=== PATIENT | male | born 1985 | race Caucasian/White ===

== ENCOUNTER 2016-07-18 17:44 | Emergency (ER) | payer MEDICARE | END 2016-07-18 18:11 | disposition home or self-care (01) | LOC: D.ER 17:44 | DX: Z03.89 Encounter for observation for other suspected diseases and conditions ruled out (principal) ==

== ENCOUNTER 2016-07-26 15:03 | Emergency (ER) | payer MEDICARE ==
[2016-07-26 16:22] LABS: UDS - AMPHET NEGATIVE QUAL (NEGATIVE); UDS - BARB NEGATIVE QUAL (NEGATIVE); UDS - BENZO NEGATIVE QUAL (NEGATIVE); UDS - COCAINE NEGATIVE QUAL (NEGATIVE); UDS - METH NEGATIVE QUAL (NEGATIVE); UDS - OPIATE NEGATIVE QUAL (NEGATIVE); UDS - PCP NEGATIVE QUAL (NEGATIVE); UDS - THC POSITIVE QUAL (NEGATIVE)
[2016-07-26 17:27] LABS: ALBUMIN 3.6 g/dL (3.4-5.0); ALKALINE PHOSPHATASE 62 U/L (46-116); ALT (SGPT) 18 U/L (10-68); BILIRUBIN - TOTAL 0.52 mg/dL (0.2-1.3); CALC OSMOLALITY 282 mosm/kg (275-300); CALCIUM 9.1 mg/dL (8.5-10.1); CARBON DIOXIDE 30.3 mmol/L (21.0-32.0); CHLORIDE - SERUM 105 mmol/L (98-107); GLUCOSE 119 mg/dL (74-106); POTASSIUM - SERUM 3.9 mmol/L (3.5-5.1); PROTEIN - SERUM 6.7 g/dL (6.4-8.2); SODIUM 141 mmol/L (136-145); UREA NITROGEN 14 mg/dL (7-18); eGFR NON AFRICAN AMERICAN > 90 mL/min (90-120)
[2016-07-26 18:12] LABS: BASOPHILS 0.4 % (0.0-2.0); EOSINOPHILS 2.1 % (0-7); HEMATOCRIT 42.8 % (42.0-54.0); HEMOGLOBIN 14.3 g/dL (13.5-17.5); IMMATURE GRANULOCYTES 0.3 % (0-5); LYMPHOCYTES 38.4 % (15-50); MCH 30.6 pg (26.0-34.0); MCHC 33.4 g/dL (31.0-37.0); MCV 91.6 fL (80.0-100.0); MEAN PLATELET VOLUME 10.7 fL (7.4-10.4); MONOCYTES 9.3 % (2-11); NEUTROPHILS 49.5 % (40-80); RBC 4.67 10x6/uL (4.20-6.10); RDW 12.8 % (11.5-14.5); WBC 12.5 10x3/uL (4.8-10.8)
[2016-07-26 18:16] LABS: PLATELET COUNT 169 10x3/uL (130-400)
[2016-07-26 23:58] LABS: APPEARANCE CLEAR (CLEAR); BILIRUBIN NEGATIVE (NEGATIVE); COLOR YELLOW (YELLOW); GLUCOSE NEGATIVE (NEGATIVE); KETONE NEGATIVE (NEGATIVE); LEUKOCYTE ESTERASE NEGATIVE (NEGATIVE); NITRITE NEGATIVE (NEGATIVE); PH 7.5 (5.0-6.0); PROTEIN NEGATIVE (NEGATIVE); SPECIFIC GRAVITY 1.005 (1.005-1.020); UROBILINOGEN NORMAL (NORMAL)
== END 2016-07-26 20:07 | disposition short-term general hospital (02) ==
LOC: D.ER 15:03
PROVIDERS: Emergency Medicine; Physician Assistant Medical
DX: F23 Brief psychotic disorder (principal); F41.9 Anxiety disorder, unspecified; F32.9 Major depressive disorder, single episode, unspecified; F20.9 Schizophrenia, unspecified; G47.00 Insomnia, unspecified; F17.200 Nicotine dependence, unspecified, uncomplicated; F12.10 Cannabis abuse, uncomplicated

== ENCOUNTER 2016-10-14 17:15 | Emergency (ER) | payer MEDICARE ==
[2016-10-14 17:51] LABS: APPEARANCE CLEAR (CLEAR); BILIRUBIN NEGATIVE (NEGATIVE); COLOR YELLOW (YELLOW); GLUCOSE NEGATIVE (NEGATIVE); KETONE NEGATIVE (NEGATIVE); LEUKOCYTE ESTERASE NEGATIVE (NEGATIVE); NITRITE NEGATIVE (NEGATIVE); PROTEIN NEGATIVE (NEGATIVE); UROBILINOGEN NORMAL (NORMAL)
[2016-10-14 17:55] LABS: UDS - AMPHET NEGATIVE QUAL (NEGATIVE); UDS - BARB NEGATIVE QUAL (NEGATIVE); UDS - BENZO NEGATIVE QUAL (NEGATIVE); UDS - COCAINE NEGATIVE QUAL (NEGATIVE); UDS - METH NEGATIVE QUAL (NEGATIVE); UDS - OPIATE NEGATIVE QUAL (NEGATIVE); UDS - PCP NEGATIVE QUAL (NEGATIVE); UDS - THC POSITIVE QUAL (NEGATIVE)
[2016-10-14 18:00] LABS: BASOPHILS 0.5 % (0.0-2.0); EOSINOPHILS 2.6 % (0-7); HEMATOCRIT 43.8 % (42.0-54.0); IMMATURE GRANULOCYTES 0.2 % (0-5); LYMPHOCYTES 41.9 % (15-50); MCHC 34.2 g/dL (31.0-37.0); MCV 90.5 fL (80.0-100.0); MEAN PLATELET VOLUME 10.5 fL (7.4-10.4); MONOCYTES 11.4 % (2-11); NEUTROPHILS 43.4 % (40-80); PLATELET COUNT 160 10x3/uL (130-400); RBC 4.84 10x6/uL (4.20-6.10); RDW 12.4 % (11.5-14.5); WBC 10.9 10x3/uL (4.8-10.8)
[2016-10-14 18:23] LABS: ALBUMIN 3.5 g/dL (3.4-5.0); ALKALINE PHOSPHATASE 60 U/L (46-116); ALT (SGPT) 18 U/L (10-68); CALC OSMOLALITY 283 mosm/kg (275-300); CALCIUM 8.9 mg/dL (8.5-10.1); CARBON DIOXIDE 26.8 mmol/L (21.0-32.0); CHLORIDE - SERUM 106 mmol/L (98-107); CREATININE - SERUM 0.9 mg/dL (0.6-1.3); GLUCOSE 82 mg/dL (74-106); POTASSIUM - SERUM 3.6 mmol/L (3.5-5.1); PROTEIN - SERUM 6.8 g/dL (6.4-8.2); SODIUM 143 mmol/L (136-145); UREA NITROGEN 13 mg/dL (7-18); eGFR NON AFRICAN AMERICAN > 90 mL/min (90-120)
== END 2016-10-14 23:55 | disposition home or self-care (01) ==
LOC: D.ER 17:15
PROVIDERS: Emergency Medicine
DX: F41.9 Anxiety disorder, unspecified (principal); F32.9 Major depressive disorder, single episode, unspecified; R45.851 Suicidal ideations; G47.00 Insomnia, unspecified; F20.9 Schizophrenia, unspecified

== ENCOUNTER 2017-01-20 16:07 | Emergency (ER) | payer MEDICARE | END 2017-01-20 17:00 | disposition home or self-care (01) | LOC: D.ER 16:07 | DX: Z03.89 Encounter for observation for other suspected diseases and conditions ruled out (principal); G47.00 Insomnia, unspecified ==

== ENCOUNTER 2017-01-21 13:03 | Emergency (ER) | payer MEDICARE ==
[2017-01-21 14:53] LABS: APPEARANCE CLEAR (CLEAR); BILIRUBIN NEGATIVE (NEGATIVE); COLOR YELLOW (YELLOW); GLUCOSE NEGATIVE (NEGATIVE); KETONE NEGATIVE (NEGATIVE); LEUKOCYTE ESTERASE NEGATIVE (NEGATIVE); NITRITE NEGATIVE (NEGATIVE); PROTEIN NEGATIVE (NEGATIVE); UROBILINOGEN NORMAL (NORMAL)
[2017-01-21 15:03] LABS: UDS - AMPHET NEGATIVE QUAL (NEGATIVE); UDS - BARB NEGATIVE QUAL (NEGATIVE); UDS - BENZO NEGATIVE QUAL (NEGATIVE); UDS - COCAINE NEGATIVE QUAL (NEGATIVE); UDS - METH NEGATIVE QUAL (NEGATIVE); UDS - OPIATE NEGATIVE QUAL (NEGATIVE); UDS - PCP NEGATIVE QUAL (NEGATIVE); UDS - THC NEGATIVE QUAL (NEGATIVE)
[2017-01-21 15:12] LABS: BASOPHILS 0.3 % (0-2); EOSINOPHILS 1.2 % (0-7); HEMATOCRIT 42.4 % (42.0-54.0); HEMOGLOBIN 14.5 g/dL (13.5-17.5); IMMATURE GRANULOCYTES 0.2 % (0-5); LYMPHOCYTES 29.3 % (15-50); MCHC 34.2 g/dL (31.0-37.0); MCV 90.8 fL (80.0-100.0); MEAN PLATELET VOLUME 10.2 fL (7.4-10.4); MONOCYTES 7.2 % (2-11); NEUTROPHILS 61.8 % (40-80); PLATELET COUNT 166 10x3/uL (130-400); RBC 4.67 10x6/uL (4.20-6.10); RDW 12.7 % (11.5-14.5); WBC 12.2 10x3/uL (4.8-10.8)
[2017-01-21 15:29] LABS: ALBUMIN 3.5 g/dL (3.4-5.0); ALKALINE PHOSPHATASE 57 U/L (46-116); ALT (SGPT) 13 U/L (10-68); BILIRUBIN - TOTAL 0.51 mg/dL (0.2-1.3); CALC OSMOLALITY 279 mosm/kg (275-300); CALCIUM 8.6 mg/dL (8.5-10.1); CARBON DIOXIDE 30.4 mmol/L (21.0-32.0); CHLORIDE - SERUM 106 mmol/L (98-107); CREATININE - SERUM 0.7 mg/dL (0.6-1.3); GLUCOSE 86 mg/dL (74-106); POTASSIUM - SERUM 3.7 mmol/L (3.5-5.1); PROTEIN - SERUM 6.6 g/dL (6.4-8.2); SODIUM 142 mmol/L (136-145); UREA NITROGEN 8 mg/dL (7-18); eGFR NON AFRICAN AMERICAN > 90 mL/min (90-120)
== END 2017-01-21 17:51 | disposition home or self-care (01) ==
LOC: D.ER 13:03
PROVIDERS: Emergency Medicine
DX: R45.851 Suicidal ideations (principal); F20.9 Schizophrenia, unspecified; F17.200 Nicotine dependence, unspecified, uncomplicated

== ENCOUNTER 2017-07-26 17:23 | Emergency (ER) | payer MEDICARE ==
[2017-07-26 18:08] LABS: APPEARANCE CLEAR (CLEAR); BILIRUBIN NEGATIVE (NEGATIVE); COLOR YELLOW (YELLOW); GLUCOSE NEGATIVE (NEGATIVE); KETONE NEGATIVE (NEGATIVE); NITRITE NEGATIVE (NEGATIVE); PROTEIN NEGATIVE (NEGATIVE); UROBILINOGEN NORMAL (NORMAL)
[2017-07-26 18:19] LABS: BASOPHILS 0.3 % (0-2); EOSINOPHILS 2.3 % (0-7); HEMATOCRIT 43.9 % (42.0-54.0); IMMATURE GRANULOCYTES 0.2 % (0-5); LYMPHOCYTES 42.8 % (15-50); MCH 30.5 pg (26.0-34.0); MCHC 34.2 g/dL (31.0-37.0); MCV 89.4 fL (80.0-100.0); MEAN PLATELET VOLUME 10.1 fL (7.4-10.4); MONOCYTES 12.4 % (2-11); PLATELET COUNT 180 10x3/uL (130-400); RBC 4.91 10x6/uL (4.20-6.10); RDW 12.6 % (11.5-14.5); WBC 9.1 10x3/uL (4.8-10.8)
[2017-07-26 18:38] LABS: ALKALINE PHOSPHATASE 79 U/L (46-116); ALT (SGPT) 19 U/L (10-68); CALC OSMOLALITY 279 mosm/kg (275-300); CALCIUM 8.9 mg/dL (8.5-10.1); CARBON DIOXIDE 27.5 mmol/L (21.0-32.0); CHLORIDE - SERUM 104 mmol/L (98-107); GLUCOSE 103 mg/dL (74-106); POTASSIUM - SERUM 3.4 mmol/L (3.5-5.1); PROTEIN - SERUM 7.3 g/dL (6.4-8.2); SODIUM 140 mmol/L (136-145); UREA NITROGEN 14 mg/dL (7-18); eGFR NON AFRICAN AMERICAN > 90 mL/min (90-120)
[2017-07-26 19:29] LABS: UDS - AMPHET NEGATIVE QUAL (NEGATIVE); UDS - BARB NEGATIVE QUAL (NEGATIVE); UDS - BENZO POSITIVE QUAL (NEGATIVE); UDS - COCAINE NEGATIVE QUAL (NEGATIVE); UDS - OPIATE NEGATIVE QUAL (NEGATIVE); UDS - PCP NEGATIVE QUAL (NEGATIVE); UDS - THC NEGATIVE QUAL (NEGATIVE)
== END 2017-07-27 03:22 | disposition home or self-care (01) ==
LOC: D.ER 17:23
PROVIDERS: Emergency Medicine; Nurse Practitioner Family
DX: R45.851 Suicidal ideations (principal); F23 Brief psychotic disorder; F17.200 Nicotine dependence, unspecified, uncomplicated

== ENCOUNTER 2019-05-15 15:03 | Emergency (ER) | payer MEDICARE ==
[~2019-05-15] VITALS: Ht 175.3 cm; Wt 89.1 kg
[2019-05-15 15:05] VITALS: Ht 175.3 cm; Wt 89.1 kg
[2019-05-15] MEDS ORDERED: PROPRANOLOL HCL20 MG PO (15:08)
[2019-05-15] MEDS ORDERED: ZOLOFT100 MG PO (15:08)
[2019-05-15] MEDS ORDERED: ZYPREXA20 MG PO (15:08)
[2019-05-15] MEDS ORDERED: KLONOPIN1 MG PO (15:08)
[2019-05-15] MEDS ORDERED: FLUPHENAZINE HC10 MG PO (15:08)
[2019-05-15 15:33] LABS: BASOPHILS 0.1 % (0-2); EOSINOPHILS 0 % (0-7); HEMATOCRIT 44.4 % (42.0-54.0); HEMOGLOBIN 14.7 g/dL (13.5-17.5); IMMATURE GRANULOCYTES 0.3 % (0-5); LYMPHOCYTES 16.4 % (15-50); MCH 30.4 pg (26.0-34.0); MCHC 33.1 g/dL (31.0-37.0); MCV 91.7 fL (80.0-100.0); MEAN PLATELET VOLUME 10.6 fL (7.4-10.4); MONOCYTES 12.7 % (2-11); NEUTROPHILS 70.5 % (40-80); PLATELET COUNT 216 10x3/uL (130-400); RBC 4.84 10x6/uL (4.20-6.10); RDW 13.9 % (11.5-14.5); WBC 13.6 10x3/uL (4.8-10.8)
[2019-05-15 15:37] LABS: CALC OSMOLALITY 281 mosm/kg (275-300); CALCIUM 9.5 mg/dL (8.5-10.1); CARBON DIOXIDE 26.9 mmol/L (21.0-32.0); CHLORIDE - SERUM 106 mmol/L (98-107); CREATININE - SERUM 0.9 mg/dL (0.6-1.3); GLUCOSE 113 mg/dL (74-106); POTASSIUM - SERUM 3.7 mmol/L (3.5-5.1); SODIUM 142 mmol/L (136-145); UREA NITROGEN 7 mg/dL (7-18); eGFR NON AFRICAN AMERICAN > 90 mL/min (90-120)
[2019-05-15 15:43] LABS: ALBUMIN 4.1 g/dL (3.4-5.0); ALKALINE PHOSPHATASE 85 U/L (46-116); ALT (SGPT) 30 U/L (10-68); BILIRUBIN - TOTAL 0.65 mg/dL (0.2-1.3)
--- NOTE | 2019-05-15 16:28 | NUR ---
DR. POSADAS NOTIFIED AND REVIEWED PATIENT'S BEHAVIOR AND ASSESSMENT RESULTS. PATIENT IS A LOW RISK PER DR. POSADAS. STATED TO GIVE RESOURCES TO PATIENT AT TIME OF DISCHARGE. RESOURCES REVIEWED WITH PATIENT AND HE VERBALIZES UNDERSTANDING. HE IS TALKING WITH VOICES, BUT DENIES ANY VOICES.
[2019-05-15 17:05] LABS: APPEARANCE CLEAR (CLEAR); BILIRUBIN NEGATIVE (NEGATIVE); COLOR YELLOW (YELLOW); GLUCOSE NEGATIVE (NEGATIVE); KETONE NEGATIVE (NEGATIVE); NITRITE NEGATIVE (NEGATIVE); PROTEIN NEGATIVE (NEGATIVE); UROBILINOGEN NORMAL (NORMAL)
--- NOTE | 2019-05-15 17:18 | NUR ---
PATIENT STILL DENIES WANTING TO HARM HIMSELF, HE JUST NEEDS HIS MEDICATIONS TO HELP HIM. HE IS TALKING INTENSELY WITH VOICES ABOUT [employer] AND SOME OPERATION.
[2019-05-15 17:33] LABS: UDS - AMPHET NEGATIVE QUAL (NEGATIVE); UDS - BARB NEGATIVE QUAL (NEGATIVE); UDS - BENZO NEGATIVE QUAL (NEGATIVE); UDS - COCAINE NEGATIVE QUAL (NEGATIVE); UDS - OPIATE NEGATIVE QUAL (NEGATIVE); UDS - PCP NEGATIVE QUAL (NEGATIVE); UDS - THC NEGATIVE QUAL (NEGATIVE)
[2019-05-15 20:41] VITALS: BP 143/85
== END 2019-05-15 22:05 ==
LOC: D.ER 15:03
PROVIDERS: Family Medicine
DX: T50.906A Underdosing of unspecified drugs, medicaments and biological substances, initial encounter (principal); F32.9 Major depressive disorder, single episode, unspecified

== ENCOUNTER 2019-06-24 06:55 | Emergency (ER) | payer MEDICARE ==
[~2019-06-24] VITALS: Ht 175.3 cm; Wt 95.5 kg
[~2019-06-24 06:55] MED LIST: FLUPHENAZINE HC10 MG PO; KLONOPIN1 MG PO; PROPRANOLOL HCL20 MG PO; ZOLOFT100 MG PO; ZYPREXA20 MG PO
[2019-06-24 06:59] VITALS: Ht 175.3 cm; Wt 95.5 kg
[2019-06-24] MEDS ORDERED: MYCOLOG TOPICAL (07:15)
[2019-06-24 07:37] VITALS: BP 112/68
== END 2019-06-24 07:38 | disposition home or self-care (01) ==
LOC: D.ER 06:55
DX: L97.501 Non-pressure chronic ulcer of other part of unspecified foot limited to breakdown of skin (principal); T69.029A Immersion foot, unspecified foot, initial encounter; Z59.0 Homelessness

== ENCOUNTER 2019-06-24 16:46 | Emergency (ER) | payer MEDICARE ==
[~2019-06-24] VITALS: Ht 175.3 cm; Wt 82.7 kg
[~2019-06-24 16:46] MED LIST changes: +MYCOLOG TOPICAL
[2019-06-24 16:56] VITALS: BP 132/82; Ht 175.3 cm; Wt 82.7 kg
== END 2019-06-24 17:10 | disposition home or self-care (01) ==
LOC: D.ER 16:46
DX: Z76.5 Malingerer [conscious simulation] (principal); M79.672 Pain in left foot; M79.671 Pain in right foot